=== PATIENT | female | born 1995 | race Caucasian/White ===

== ENCOUNTER 2022-04-23 13:15 | Inpatient (IN) | payer BC ==
[~2022-04-23] VITALS: Ht 162.6 cm; Wt 60.5 kg
[2022-04-23 14:17] LABS: BASO % 0.6 % (0.0-2.0); EOS # 0.2 K/mm3 (0.0-0.7); EOS % 2.7 % (0.0-4.0); GRAN % 64.5 % (42.2-75.2); HEMATOCRIT 40.4 % (37.0-47.0); HEMOGLOBIN 14.5 g/dl (12.5-16.0); LYMPH # 1.5 K/mm3 (1.2-3.4); LYMPH % 24.5 % (20.0-51.0); MEAN CELL VOLUME 87 fl (80.0-100.0); MEAN CORPUSCULAR HEMOGLOBIN 31 pg (27-31); MEAN CORPUSCULAR HGB CONC 36 g/dl (33.0-37.0); MEAN PLATELET VOLUME 10.5 fl (7.4-10.4); MONO # 0.5 K/mm3 (0.1-0.6); MONO % 7.4 % (1.7-9.3); PLATELET COUNT 225 K/mm3 (130-400); RED BLOOD COUNT 4.63 M/mm3 (4.10-5.30); REDCELL DISTRIBUTION WIDTH-CV 12.6 % (11.5-14.5)
[2022-04-23 14:38] LABS: ALBUMIN 3.8 gm/dL (3.5-5.0); C-REACTIVE PROTEIN 1.97 mg/dL (0.00-0.50); CALCIUM 9.2 mg/dL (8.4-10.2); CREATININE, serum 0.75 mg/dL (0.57-1.11); POTASSIUM 3.7 mmol/L (3.5-4.5); TOTAL PROTEIN 6.3 gm/dL (6.2-8.1)
[2022-04-23 14:46] LABS: BILIRUBIN,TOTAL 3.3 mg/dL (0.2-1.2)
[2022-04-23 14:55] LABS: MONOSCREEN NEGATIVE
[2022-04-23 15:00] LABS: CREATINE KINASE 36 U/L (29-168)
[2022-04-23 15:03] LABS: INR 1.5 (0.8-3.0); PROTHROMBIN TIME 17.2 SECONDS (9.7-12.8)
[2022-04-23 15:05] LABS: ACETAMINOPHEN < 1.0 ug/mL (10-30); ALCOHOL(ethanol),MEDICAL < 10 mg/dL (0-10)
[2022-04-23 15:16] LABS: COLLECTION METHOD CLEAN CATCH
[2022-04-23 15:34] LABS: URINE APPEARANCE Clear (CLEAR/HAZY); URINE BLOOD Negative (NEGATIVE); URINE COLOR Yellow (YELLOW); URINE GLUCOSE Negative (NEGATIVE); URINE KETONE Negative (NEGATIVE); URINE NITRATE Negative (NEGATIVE); URINE PROTEIN(semi-quant) TRACE (NEGATIVE); URINE UROBILINOGEN 0.2 E.U/dL (0.2-1.0)
[2022-04-23 15:39] LABS: MUCOUS Present (NOT PRESENT); SQUAMOUS EPITHELIAL None Seen /hpf (0-10); URINE BACTERIA None Seen /hpf (NONE SEEN); URINE RBC 0-2 /hpf (0-2)
[2022-04-23 15:50] LABS: TRICYCLIC ANTIDEPRESS URINE NEGATIVE
[2022-04-23] MEDS ORDERED: ALBUTEROL S0.4 MG/ML PO (17:45)
[2022-04-23 21:10] VITALS: BP 100/50; PULSE 67; TEMP 98.7
[2022-04-23 23:41] VITALS: BP 94/51; PULSE 52; TEMP 98.7
[2022-04-24 03:27] VITALS: BP 101/60; PULSE 89; TEMP 98.3
[2022-04-24 07:01] LABS: BASO % 0.9 % (0.0-2.0); EOS # 0.3 K/mm3 (0.0-0.7); EOS % 7.3 % (0.0-4.0); GRAN # 2.4 K/mm3 (1.4-6.5); GRAN % 53.4 % (42.2-75.2); LYMPH # 1.3 K/mm3 (1.2-3.4); LYMPH % 28.4 % (20.0-51.0); MEAN CELL VOLUME 90 fl (80.0-100.0); MEAN CORPUSCULAR HGB CONC 35 g/dl (33.0-37.0); MEAN PLATELET VOLUME 10.7 fl (7.4-10.4); MONO # 0.4 K/mm3 (0.1-0.6); MONO % 9.8 % (1.7-9.3); PLATELET COUNT 191 K/mm3 (130-400); RED BLOOD COUNT 3.93 M/mm3 (4.10-5.30); REDCELL DISTRIBUTION WIDTH-CV 13.1 % (11.5-14.5)
[2022-04-24 07:04] LABS: HEMATOCRIT 35.4 % (37.0-47.0); HEMOGLOBIN 12.4 g/dl (12.5-16.0); MEAN CORPUSCULAR HEMOGLOBIN 32 pg (27-31)
[2022-04-24 07:15] LABS: ALBUMIN 2.9 gm/dL (3.5-5.0); CALCIUM 8.3 mg/dL (8.4-10.2); CREATININE, serum 0.7 mg/dL (0.57-1.11); MAGNESIUM 1.8 mg/dL (1.6-2.6); PHOSPHOROUS 3.5 mg/dL (2.3-4.7); POTASSIUM 4.2 mmol/L (3.5-4.5)
[2022-04-24 07:33] VITALS: BP 94/55; PULSE 73; TEMP 97.4
[2022-04-24 10:45] LABS: ALBUMIN 2.9 gm/dL (3.5-5.0); BILIRUBIN,TOTAL 2.7 mg/dL (0.2-1.2); CALCIUM 8.2 mg/dL (8.4-10.2); CREATININE, serum 0.68 mg/dL (0.57-1.11); POTASSIUM 4.3 mmol/L (3.5-4.5); TOTAL PROTEIN 4.8 gm/dL (6.2-8.1)
[2022-04-24 12:03] VITALS: BP 96/62; PULSE 52; TEMP 98.7
[2022-04-24 16:31] VITALS: BP 101/56; PULSE 64; TEMP 98.4
[2022-04-24 20:42] VITALS: BP 98/55; PULSE 61; TEMP 97.9
[2022-04-24 23:27] VITALS: BP 93/52; PULSE 52; TEMP 97.9
[2022-04-25 04:46] VITALS: BP 100/50; PULSE 59; TEMP 98
[2022-04-25 06:47] LABS: BASO % 0.5 % (0.0-2.0); EOS # 0.3 K/mm3 (0.0-0.7); EOS % 6.8 % (0.0-4.0); GRAN # 2.6 K/mm3 (1.4-6.5); GRAN % 59.8 % (42.2-75.2); HEMOGLOBIN 11.8 g/dl (12.5-16.0); LYMPH # 1.1 K/mm3 (1.2-3.4); LYMPH % 25.4 % (20.0-51.0); MEAN CELL VOLUME 94 fl (80.0-100.0); MEAN CORPUSCULAR HEMOGLOBIN 32 pg (27-31); MEAN CORPUSCULAR HGB CONC 34 g/dl (33.0-37.0); MEAN PLATELET VOLUME 11.3 fl (7.4-10.4); MONO # 0.3 K/mm3 (0.1-0.6); MONO % 7.3 % (1.7-9.3); PLATELET COUNT 166 K/mm3 (130-400); RED BLOOD COUNT 3.71 M/mm3 (4.10-5.30); REDCELL DISTRIBUTION WIDTH-CV 12.9 % (11.5-14.5)
[2022-04-25 06:50] LABS: HEMATOCRIT 34.7 % (37.0-47.0)
[2022-04-25 07:15] LABS: ALBUMIN 2.7 gm/dL (3.5-5.0); BILIRUBIN,TOTAL 2.6 mg/dL (0.2-1.2); CREATININE, serum 0.63 mg/dL (0.57-1.11); MAGNESIUM 1.6 mg/dL (1.6-2.6); POTASSIUM 4.1 mmol/L (3.5-4.5); TOTAL PROTEIN 4.5 gm/dL (6.2-8.1)
[2022-04-25 07:17] LABS: INR 1.8 (0.8-3.0); PROTHROMBIN TIME 20.3 SECONDS (9.7-12.8)
[2022-04-25 08:13] VITALS: BP 96/55; PULSE 61; TEMP 98.1
[2022-04-25 08:24] VITALS: BP 95/54; PULSE 53; TEMP 98.1
[2022-04-25 12:00] VITALS: BP 99/55; PULSE 55; TEMP 98.4
[2022-04-25 15:50] VITALS: BP 98/56; PULSE 65; TEMP 98
[2022-04-25 19:53] VITALS: BP 94/47; PULSE 65; TEMP 98.7
[2022-04-26] VITALS (7 sets, daily range): BP systolic 90–108; BP diastolic 45–61; PULSE 56–67; TEMP 98.1–98.8
[2022-04-26 06:55] LABS: BASO % 0.7 % (0.0-2.0); EOS # 0.3 K/mm3 (0.0-0.7); EOS % 7.6 % (0.0-4.0); GRAN # 2.4 K/mm3 (1.4-6.5); GRAN % 56.5 % (42.2-75.2); HEMOGLOBIN 11.3 g/dl (12.5-16.0); LYMPH # 1.1 K/mm3 (1.2-3.4); LYMPH % 26.7 % (20.0-51.0); MEAN CELL VOLUME 94 fl (80.0-100.0); MEAN CORPUSCULAR HEMOGLOBIN 32 pg (27-31); MEAN CORPUSCULAR HGB CONC 34 g/dl (33.0-37.0); MEAN PLATELET VOLUME 11.5 fl (7.4-10.4); MONO # 0.3 K/mm3 (0.1-0.6); PLATELET COUNT 165 K/mm3 (130-400); RED BLOOD COUNT 3.55 M/mm3 (4.10-5.30); REDCELL DISTRIBUTION WIDTH-CV 12.9 % (11.5-14.5)
[2022-04-26 06:56] LABS: HEMATOCRIT 33.2 % (37.0-47.0)
[2022-04-26 07:04] LABS: PROTHROMBIN TIME 23.2 SECONDS (9.7-12.8)
[2022-04-26 07:09] LABS: ALBUMIN 2.6 gm/dL (3.5-5.0); BILIRUBIN,DIRECT 1.7 mg/dL (0.0-0.5); BILIRUBIN,TOTAL 2.4 mg/dL (0.2-1.2); CALCIUM 7.8 mg/dL (8.4-10.2); CREATININE, serum 0.6 mg/dL (0.57-1.11); POTASSIUM 4.2 mmol/L (3.5-4.5)
[2022-04-26 07:31] LABS: MAGNESIUM 1.6 mg/dL (1.6-2.6)
[2022-04-27 03:27] VITALS: BP 97/52; PULSE 56; TEMP 98.3
[2022-04-27 06:34] LABS: BASO % 0.7 % (0.0-2.0); EOS # 0.2 K/mm3 (0.0-0.7); EOS % 3.8 % (0.0-4.0); GRAN # 2.9 K/mm3 (1.4-6.5); HEMATOCRIT 36.9 % (37.0-47.0); HEMOGLOBIN 12.6 g/dl (12.5-16.0); LYMPH # 0.9 K/mm3 (1.2-3.4); LYMPH % 20.6 % (20.0-51.0); MEAN CELL VOLUME 93 fl (80.0-100.0); MEAN CORPUSCULAR HEMOGLOBIN 32 pg (27-31); MEAN CORPUSCULAR HGB CONC 34 g/dl (33.0-37.0); MEAN PLATELET VOLUME 11.1 fl (7.4-10.4); MONO # 0.3 K/mm3 (0.1-0.6); MONO % 6.4 % (1.7-9.3); PLATELET COUNT 177 K/mm3 (130-400); RED BLOOD COUNT 3.96 M/mm3 (4.10-5.30); REDCELL DISTRIBUTION WIDTH-CV 12.9 % (11.5-14.5)
[2022-04-27 06:45] LABS: INR 1.9 (0.8-3.0); PROTHROMBIN TIME 22.3 SECONDS (9.7-12.8)
[2022-04-27 06:57] LABS: ALBUMIN 2.7 gm/dL (3.5-5.0); BILIRUBIN,TOTAL 2.8 mg/dL (0.2-1.2); CALCIUM 8.1 mg/dL (8.4-10.2); CREATININE, serum 0.64 mg/dL (0.57-1.11); MAGNESIUM 1.5 mg/dL (1.6-2.6); POTASSIUM 4.2 mmol/L (3.5-4.5); TOTAL PROTEIN 4.5 gm/dL (6.2-8.1)
== END 2022-04-27 07:45 | disposition short-term general hospital (02) | DRG 442 ==
LOC: COL.ER 13:15 → MEDICAL 16:47
PROVIDERS: Internal Medicine; Nurse Practitioner; ADMIT Internal Medicine
DX: K71.2 Toxic liver disease with acute hepatitis (principal); R18.8 Other ascites; J45.909 Unspecified asthma, uncomplicated; F14.10 Cocaine abuse, uncomplicated; F12.10 Cannabis abuse, uncomplicated; Z90.89 Acquired absence of other organs; Z88.0 Allergy status to penicillin; Z23 Encounter for immunization
CPT/HCPCS: G0378; J0696; J1170; J2405; J3010; J3480; J7030; Q9967